=== PATIENT | male | born 1965 | race Caucasian/White ===

== ENCOUNTER 2020-02-29 11:34 | Emergency (ER) | payer BC ==
[~2020-02-29] VITALS: Ht 170.2 cm; Wt 77.1 kg
[2020-02-29] MEDS ORDERED: FLUORESCEIN SOD(OPTH) 1 MG STRP ONE (11:47)
[2020-02-29] MEDS ORDERED: TETRACAINE HCL 0.5% OPTH SOLN 4 ML BTL ONE (11:47)
[2020-02-29] MEDS ORDERED: FLUORESCEIN SOD(OPTH) 1 MG STRP OP ONE (12:00)
[2020-02-29] MEDS ORDERED: TETRACAINE HCL 0.5% OPTH SOLN 4 ML BTL OP ONE (12:00)
--- NOTE | 2020-02-29 12:05 | NUR ---
EYE ACUITY COMPLETED, LEFT EYE 20/20. BOTH EYES 20/20 RIGHT EYE 20/[address] HAMILTON. PT DOES WEAR GLASSES AND COMPLETED WITH GLASSES.
== END 2020-02-29 12:24 | disposition home or self-care (01) ==
LOC: FSED 11:34
DX: H57.11 Ocular pain, right eye (principal); T15.01XA Foreign body in cornea, right eye, initial encounter; Y99.0 Civilian activity done for income or pay; I10 Essential (primary) hypertension
CPT/HCPCS: 99283